=== PATIENT | male | born 1960 ===

== ENCOUNTER 2020-10-25 11:56 | Outpatient (REF) | payer OTHER, SELFPAY ==
[2020-10-25 14:46] LABS: Alanine Aminotransferase 22 U/L (0-40); Aspartate Amino Transferase 23 U/L (5-37); Cholesterol 221 mg/dL; HDL Cholesterol 57 mg/dL; LDL Cholesterol Calculated 139 mg/dl; Triglycerides 127 mg/dL
[2020-10-25 15:08] LABS: PSA,Total (Free>4and<10) 1.35 ng/mL (0.00-4.00)
== END 2020-10-25 11:57 | disposition home or self-care (01) ==
LOC: HO.HMGCLDS 11:56
PROVIDERS: PCP Internal Medicine; Visit Provider Internal Medicine
DX: Z00.01 Encounter for general adult medical examination with abnormal findings (principal); Z12.5 Encounter for screening for malignant neoplasm of prostate; E78.5 Hyperlipidemia, unspecified
CPT/HCPCS: 36415; 80061; 84153; 84450; 84460

== ENCOUNTER 2021-04-10 12:07 | Outpatient (REF) | payer OTHER, SELFPAY ==
[2021-04-10 14:34] LABS: Alanine Aminotransferase 23 U/L (0-40); Anion Gap 13 (12-20); Aspartate Amino Transferase 20 U/L (5-37); Blood Urea Nitrogen 19 mg/dL (9-16); Calcium 9.9 mg/dL (8.4-10.2); Carbon Dioxide 26 mmol/L (22-29); Chloride 106 mmol/L (96-108); Cholesterol 224 mg/dL; Estimated Glomerular Filt Rate > 60; Glucose Fasting 100 mg/dL (60-99); HDL Cholesterol 51 mg/dL; LDL Cholesterol Calculated 142 mg/dl; Potassium 4.8 mmol/L (3.3-5.1); Sodium 140 mmol/L (135-145); Triglycerides 159 mg/dL
[2021-04-10 14:40] LABS: Vitamin D 25-OH Total 39.7 ng/mL (>30)
== END 2021-04-10 12:08 | disposition home or self-care (01) ==
LOC: HO.HMGCLDS 12:07
PROVIDERS: PCP Internal Medicine; Visit Provider Internal Medicine
DX: E78.5 Hyperlipidemia, unspecified (principal); E55.9 Vitamin D deficiency, unspecified; I10 Essential (primary) hypertension
CPT/HCPCS: 36415; 80048; 80061; 82306; 84450; 84460

== ENCOUNTER → 2021-08-30 10:42 | Outpatient (BNVA) | payer OTHER, SELFPAY | PROVIDERS: PCP Internal Medicine; Visit Provider Urology | DX: R35.1 Nocturia (principal); R39.15 Urgency of urination; N32.0 Bladder-neck obstruction | CPT/HCPCS: 51798; 99202 ==

== ENCOUNTER 2021-10-27 11:07 | Outpatient (REF) | payer OTHER, SELFPAY ==
[2021-10-27 13:11] LABS: MANUAL DIFF FLAG NO
[2021-10-27 13:12] LABS: Basophils Percent Auto 0.6 % (0-2); Eosinophils Absolute Auto 0.1 X10*3/uL (0.0-0.4); Eosinophils Percent Auto 0.7 % (0-4); Hematocrit 45.7 % (42.0-52.0); Hemoglobin 14.5 g/dl (14.0-18.0); Imm Gran Abs Auto 0.03 X10*3/uL (0.00-0.03); Imm Gran Pct Auto 0.4 % (0.0-0.4); Lymphocytes Absolute Auto 2.6 X10*3/uL (1.2-4.9); Lymphocytes Percent Auto 38.6 % (20-40); Mean Corpuscular HGB Conc 31.7 g/dl (31.0-36.0); Mean Corpuscular Hemoglobin 27.3 pg (27.0-33.0); Mean Corpuscular Volume 85.9 fL (80.0-98.0); Mean Platelet Volume 10.9 fL (9.4-12.4); Monocytes Absolute Auto 0.6 X10*3/uL (0.1-1.2); Monocytes Percent Auto 9.5 % (2-11); Neutrophils Absolute Auto 3.4 x10*3/uL (2.0-8.3); Neutrophils Percent Auto 50.2 % (45-73); Platelet Count 223 X10*3/uL (160-400); Red Blood Count 5.32 X10*6/uL (4.60-5.80); Red Cell Distribution Width 13.2 % (11.0-16.0); White Blood Count 6.7 X10*3/uL (4.8-10.8)
[2021-10-27 13:35] LABS: Alanine Aminotransferase 26 U/L (0-40); Anion Gap 12 (12-20); Aspartate Amino Transferase 20 U/L (5-37); Blood Urea Nitrogen 20 mg/dL (9-16); Calcium 9.6 mg/dL (8.4-10.2); Carbon Dioxide 28 mmol/L (22-29); Chloride 106 mmol/L (96-108); Cholesterol 221 mg/dL; Estimated Glomerular Filt Rate > 60; Glucose Fasting 104 mg/dL (60-99); HDL Cholesterol 49 mg/dL; LDL Cholesterol Calculated 142 mg/dl; Potassium 4.6 mmol/L (3.3-5.1); Sodium 141 mmol/L (135-145); Triglycerides 150 mg/dL
[2021-10-27 14:15] LABS: Vitamin D 25-OH Total 42.4 ng/mL (>30)
== END 2021-10-27 11:08 | disposition home or self-care (01) ==
LOC: HO.HMGCLDS 11:07
PROVIDERS: PCP Internal Medicine; Visit Provider Internal Medicine
DX: E55.9 Vitamin D deficiency, unspecified (principal); K21.9 Gastro-esophageal reflux disease without esophagitis; E78.5 Hyperlipidemia, unspecified; I10 Essential (primary) hypertension
CPT/HCPCS: 36415; 80048; 80061; 82306; 84450; 84460; 85025

== ENCOUNTER 2022-06-18 10:35 | Outpatient (REF) | payer OTHER, SELFPAY ==
[2022-06-18 11:55] LABS: Estimated Average Glucose 123 mg/dL; Hemoglobin A1C 152.4144 umol/L; Hemoglobin A1c % 5.9 %
[2022-06-18 12:45] LABS: Alanine Aminotransferase 29 U/L (0-40); Aspartate Amino Transferase 17 U/L (5-37); Cholesterol 210 mg/dL; Glucose Fasting 106 mg/dL (60-99); HDL Cholesterol 47 mg/dL; LDL Cholesterol Calculated 143 mg/dl; Triglycerides 102 mg/dL; Vitamin D 25-OH Total 53.8 ng/mL (>30)
== END 2022-06-18 10:36 | disposition home or self-care (01) ==
LOC: HO.HMGCLDS 10:35
PROVIDERS: PCP Internal Medicine; Visit Provider Internal Medicine
DX: E55.9 Vitamin D deficiency, unspecified (principal); E78.5 Hyperlipidemia, unspecified; F41.8 Other specified anxiety disorders; K21.9 Gastro-esophageal reflux disease without esophagitis; R73.01 Impaired fasting glucose
CPT/HCPCS: 36415; 80061; 82306; 82947; 83036; 84450; 84460

== ENCOUNTER 2022-08-20 13:55 | Outpatient (REF) | payer OTHER, SELFPAY ==
--- NOTE | ~2022-08-20 | XR_ITS ---
EXAMINATION: LEFT HAND. CLINICAL INFORMATION: Pain in the left wrist. COMPARISON: None TECHNIQUE: 3 views. FINDINGS: No fracture. No dislocation. Joint spaces are normal. No significant degenerative change. No soft tissue calcification. XR/XR hand wrist LT IMPRESSION: Normal left hand.
== END 2022-08-20 13:56 | disposition home or self-care (01) ==
LOC: HO.HMGCX 13:55
PROVIDERS: PCP Internal Medicine; Visit Provider Internal Medicine
DX: M25.532 Pain in left wrist (principal)
CPT/HCPCS: 73110; 73130

== ENCOUNTER 2023-02-20 12:20 | Outpatient (REF) | payer OTHER, SELFPAY ==
[2023-02-20 17:02] LABS: Alanine Aminotransferase 20 U/L (0-40); Aspartate Amino Transferase 22 U/L (5-37); Cholesterol 213 mg/dL; HDL Cholesterol 54 mg/dL; LDL Cholesterol Calculated 142 mg/dl; Triglycerides 88 mg/dL
[2023-02-20 17:09] LABS: Vitamin D 25-OH Total 60.3 ng/mL (>30)
== END 2023-02-20 12:21 | disposition home or self-care (01) ==
LOC: HO.HMGCLDS 12:20
PROVIDERS: PCP Internal Medicine; Visit Provider Internal Medicine
DX: E78.5 Hyperlipidemia, unspecified (principal); Z86.39 Personal history of other endocrine, nutritional and metabolic disease
CPT/HCPCS: 36415; 80061; 82306; 84450; 84460

== ENCOUNTER 2023-02-25 11:11 | Outpatient (AMB) | payer OTHER, SELFPAY ==
[2023-02-25 12:26] VITALS: BP 100/62; PULSE 74; O2SAT 99; BMI 23.9
--- NOTE | 2023-02-25 12:26 | A.OFFPC_ITS ---
Vital Signs 02/25/23 12:26 Height 5 ft 5 in Weight 143 lb 6 oz BMI 23.9 BP 100/62 Blood Pressure Location Lt brachial Position Sitting Pulse 74 Pulse Source Pulse Oximeter Pulse Oximetry (%) 99 Oxygen Delivery Method Room Air Intake Visit Reasons: 6 month follow up Lipids Intake Note: pt is here to follow up on his labs Allergies No Known Allergies Allergy (Verified 02/25/23 12:41) Medication List - Last Reconciled 02/25/23 by Nirali Salazar MD atorvastatin 20 mg PO DAILY baclofen 10 mg PO DAILY PRN bupropion HCl 150 mg PO QAM cholecalciferol (vitamin D3) 50 mcg PO DAILY diclofenac potassium 50 mg PO BID PRN diclofenac sodium 1% topical flu vacc [id number] 6mos up(PF) mL IM fluoxetine 20 mg PO QAM fluticasone propionate 50 mcg/actuation 1 spray intranasal DAILY magnesium 200 mg PO DAILY meclizine 25 mg PO BID PRN naproxen (EC-Naproxen) 500 mg PO Q12H PRN omeprazole 20 mg PO DAILY prazosin 2 mg PO BEDTIME tamsulosin 0.4 mg PO BEDTIME 30 days Tobacco use date assessed: 02/25/23 Dental Screening Dental Screen Date: 02/25/23 Did you have a dental visit in the last 12 months?: Yes Did you have a dental problem in the last 6 months where you did not have access to dental care?: No Was dental information given to patient?: Patient has dentist HPI 6 month follow up Lipids HPI Details 62-year-old male with history of dyslipidemia currently on atorvastatin 20 mg daily, here today for follow-up. Had recent fasting labs done which showed LDL cholesterol is still elevated, unchanged from previous. Has not really been following any specific diet, as per daughter, patient aids egg regularly for breakfast, and loves eating meat, specially beef, and does not get any regular exercise. [facility] Medical History Anxiety and depression Blurred vision, bilateral Cholelithiasis Chronic GERD Depression with anxiety Dyslipidemia Epigastric pain Hearing loss Left inguinal hernia Left wrist pain Nocturia more than twice per night Osteoarthritis involving multiple joints on both sides of body Vitamin D deficiency Surgical History H/O esophagogastroduodenoscopy History of colonoscopy Family History Father No problems noted. Mother HTN (hypertension) Maternal Grandfather No problems noted. Maternal Grandmother No problems noted. Paternal Grandfather No problems noted. Paternal Grandmother No problems noted. Social History Housing: Apartment Alcohol intake: never Patient Tobacco Use Status: Former Tobacco user Years Smoked: 5 years e-Cigarette/Vaping Use: Never Used Current occupational status: retired Cognitive needs: No Hearing needs: Yes Vision needs: Yes Questionnaire Thrive Questionnaire Date Thrive assessed: 08/20/22 KENDRICK-7 AMB Questionnaire KENDRICK-7 Date KENDRICK - 7 assessed: 08/20/22 Source: Developed by Drs. Eliud Webb, Candida Peoples, Zbigniew Arias and colleagues, with an educational daniel from [employer]. Review of Systems Const Denies fever(s), Denies headache(s) and Denies weakness Eyes Reports no additional complaints ENT Denies dizziness, Denies headache(s), Denies nasal congestion, Denies nasal discharge and Denies sore throat Card Denies chest pain, Denies lightheadedness, Denies palpitations and Denies dyspnea Resp Denies chest congestion, Denies cough, Denies dyspnea and Denies wheezing GI Denies melena, Denies hematochezia and Denies nausea Reports no additional complaints Musc Denies joint swelling and Reports stiffness Neuro Denies dizziness, Denies headache(s) and Denies weakness Psych Reports as per HPI Endo Denies polydipsia, Denies polyuria and Denies palpitations Charles/Lymph Denies easy bruising Aller/Immun Denies seasonal rhinorrhea and Denies wheezing Physical exam (Primary Care) Vital Signs: Last Vital Signs Pulse 74 02/25/23 12:26 BP 100/62 02/25/23 12:26 Pulse Ox 99 02/25/23 12:26 Oxygen Delivery Method Room Air 02/25/23 12:26 BMI result Body Mass Index 23.9 Tobacco/Smoking Status: Tobacco use Status Tobacco use date assessed 02/25/23 02/25/23 12:34 Patient Tobacco Use Status Former Tobacco user 02/25/23 12:34 e-Cigarette/Vaping Use Never Used 02/25/23 12:34 Thrive Assessment: Date of Thrive Assessment Date Thrive assessed 08/20/22 02/25/23 12:34 Const Other: Spoke with 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 via mail 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 General: cooperative, comfortable, no acute distress and alert HENMT Face and sinus: Yes face symmetric Mouth: Normal oral and palatal mucosa present and moist mucous membranes Neck Neck: Yes full ROM, Yes no lymphadenopathy and Yes supple Resp Auscultation: clear to auscultation bilaterally Cardio Other: S1-S2 present regular rate and rhythm GI Inspection: Yes normal to inspection Palpation (GI): Soft to palpation, nontender, no guarding and no masses Skin General skin exam: no rashes or lesions noted Neuro General: gait normal, moves all extremities, Normal light touch and pain sensation, no focal motor deficits and CN's II-XI intact bilaterally Extrem Other: Slightly tender fluctuant swelling noted over left wrist joint, General: Yes full ROM, Yes no joint enlargement, Yes no pedal edema and Yes normal gait Results Reviewed Results Reviewed: RUN: 02/25/23 1241 PAGE 1 [facility] [address] [place] [id number] Manager Housekeeping: Carlos Fong M.D. Specimen Inquiry Name: Claudia Stock Age/Sex: 62/M : 1960 Unit#: [id number] Attend Dr: Nirali Salazar MD Re02/20/23 Status: DEP REF Location: [facility] Disch: SPEC : [id number] MARIBETH: 02/20/23-1232 STATUS: COMP REQ : [id number] RECD: 02/20/23-[address]: Nirali Salazar MD COMP: 02/20/23-1708 ENTERED: 02/20/23-[address]: ORDERED: AST, ALT, Lipid Panel, Vitamin D 25-OH Test Result Flag Reference Site AST (GOT) 22 5-37 U/L ALT (GPT) 20 0-40 U/L Triglyceride 88 mg/dL Desirable Triglyceride: less than 150 mg/dL Borderline High Triglyceride 150-199 mg/dL High Triglyceride: 200-499 mg/dL Very High Triglyceride: greater than or equal to 5OO mg/dL Chol 213 mg/dL Desirable Cholesterol: less than 200 mg/dL Borderline High Cholesterol: 200-239 mg/dL High Cholesterol: greater than 239 mg/dL LDL Calculated 142 mg/dl Desirable LDL: less than 100 mg/dL Near Optimal/Above Optimal LDL: 110-129 mg/dL Borderline High LDL: 130-159 mg/dL High LDL: 160-189 mg/dL Very High LDL: greater than or equal to 190 mg/dL HDL 54 mg/dL Desirable HDL: greater than 40 mg/dL Note: This HDL assay may give artificially low results in patients with liver disease. Vit D 25-OH Tot 60.3 >30 ng/mL Health Based Reference Values* < 20 ng/mL Deficient 20-30 ng/mL Insufficient > 30 ng/mL Sufficient Assessment and Plan Assessment & Plan (1) Dyslipidemia: Code(s): E78.5 - Hyperlipidemia, unspecified Plan: Reviewed recent fasting lipid profile with patient with LDL cholesterol level still elevated, unchanged from previous visits. Continue with atorvastatin, but dose increased to 40 mg daily , in addition to adherence to low-cholesterol diet and regular exercise, at least 30 minutes 3 to 4 times a week. Advised patient to make healthy food choices, eat more fruits, vegetables, whole grains, wild caught fish and low-fat dairy. Limit amount of meat and fried or fatty food products, as well as processed foods and fast foods. Follow-up scheduled with repeat fasting lipid panel in 3 months. Orders: Orders Alanine Aminotransferase 3 Months E78.5 - Hyperlipidemia, unspecified Aspartate Amino Transferase 3 Months E78.5 - Hyperlipidemia, unspecified Lipid Panel 3 Months E78.5 - Hyperlipidemia, unspecified Medications: Changed From atorvastatin 20 mg PO DAILY 90 tabs 3RF E78.5 - Hyperlipidemia, unspecified To atorvastatin 40 mg PO DAILY 90 tabs 3RF E78.5 - Hyperlipidemia, unspecified Coding Level of Care Code Est Pt Level 3 (08035) Diagnoses Dyslipidemia E78.5
== END 2023-02-25 13:48 | disposition home or self-care (01) ==
PROVIDERS: Visit Provider Internal Medicine
DX: E78.5 Hyperlipidemia, unspecified (principal)
CPT/HCPCS: 99213

== ENCOUNTER 2023-05-27 10:41 | Outpatient (REF) | payer OTHER, SELFPAY ==
[2023-05-27 14:23] LABS: Alanine Aminotransferase 21 U/L (0-40); Aspartate Amino Transferase 21 U/L (5-37); Cholesterol 223 mg/dL (<200); HDL Cholesterol 55 mg/dL (>40); LDL Cholesterol Calculated 146 mg/dL (<100); Triglycerides 111 mg/dL (<150)
== END 2023-05-27 10:42 | disposition home or self-care (01) ==
LOC: HO.HMGCLDS 10:41
PROVIDERS: PCP Internal Medicine; Visit Provider Internal Medicine
DX: E78.5 Hyperlipidemia, unspecified (principal)
CPT/HCPCS: 36415; 80061; 84450; 84460

== ENCOUNTER 2023-07-15 11:48 | Outpatient (AMB) | payer OTHER, SELFPAY ==
[2023-07-15 12:38] VITALS: BP 126/72; PULSE 66; O2SAT 98; BMI 23.7
--- NOTE | 2023-07-15 12:38 | MHC.PC.OV ---
Vital Signs 07/15/23 12:38 Height 5 ft 5 in Weight 142 lb 8 oz BMI 23.7 BP 126/72 Blood Pressure Location Lt brachial Position Sitting Pulse 66 Pulse Source Pulse Oximeter Pulse Oximetry (%) 98 Oxygen Delivery Method Room Air Intake Visit Reasons: follow up Intake Note: Pt is here to follow up for lab results Allergies No Known Allergies Allergy (Verified 07/15/23 13:08) Medication List - Last Reconciled 07/15/23 by Nirali Salazar MD cholecalciferol (vitamin D3) 50 mcg PO DAILY fluticasone propionate 50 mcg/actuation 1 spray intranasal DAILY meclizine 25 mg PO BID PRN omeprazole 20 mg PO DAILY Tobacco use date assessed: 07/15/23 Fall risk assessment: No Falls in past year Last assessed Fall Risk: 07/15/23 HPI follow up HPI Details 63-year-old male with chronic GERD, hyperlipidemia, and seasonal allergic rhinitis, here today for follow-up. He has been feeling well, had recent fasting labs done which showed elevated LDL cholesterol. [facility] Medical History Refused influenza vaccine Anxiety and depression Left wrist pain Left inguinal hernia Cholelithiasis Hearing loss Osteoarthritis involving multiple joints on both sides of body Epigastric pain Nocturia more than twice per night Vitamin D deficiency Depression with anxiety Chronic GERD Blurred vision, bilateral Dyslipidemia Surgical History H/O esophagogastroduodenoscopy History of colonoscopy Family History Father No problems noted. Mother HTN (hypertension) Maternal Grandfather No problems noted. Maternal Grandmother No problems noted. Paternal Grandfather No problems noted. Paternal Grandmother No problems noted. Social History Housing: Apartment Alcohol intake: never Patient Tobacco Use Status: Former Tobacco user Years Smoked: 5 years e-Cigarette/Vaping Use: Never Used Current occupational status: retired Cognitive needs: No Hearing needs: Yes Vision needs: Yes Questionnaire Thrive Questionnaire Date Thrive assessed: 08/20/22 KENDRICK-7 AMB Questionnaire KENDRICK-7 Date KENDRICK - 7 assessed: 08/20/22 Source: Developed by Drs. Eliud Webb, Candida Peoples, Zbigniew Arias and colleagues, with an educational daniel from [employer]. Review of Systems Const Denies fever(s), Denies headache(s) and Denies weakness Eyes Reports no additional complaints ENT Denies headache(s), Denies nasal congestion, Denies nasal discharge and Denies sore throat Card Denies chest pain, Denies lightheadedness and Denies dyspnea Resp Denies cough and Denies dyspnea GI Denies melena, Denies hematochezia and Denies nausea Reports no additional complaints Musc Denies joint swelling and Reports stiffness Neuro Denies headache(s) and Denies weakness Psych Reports as per HPI Aller/Immun Reports seasonal rhinorrhea Physical exam (Primary Care) Vital Signs: Last Vital Signs Pulse 66 07/15/23 12:38 BP 126/72 07/15/23 12:38 Pulse Ox 98 07/15/23 12:38 Oxygen Delivery Method Room Air 07/15/23 12:38 BMI result Body Mass Index 23.7 Tobacco/Smoking Status: Tobacco use Status Tobacco use date assessed 07/15/23 07/15/23 12:52 Patient Tobacco Use Status Former Tobacco user 07/15/23 12:38 e-Cigarette/Vaping Use Never Used 07/15/23 12:38 Thrive Assessment: Date of Thrive Assessment Date Thrive assessed 08/20/22 07/15/23 12:38 Const Other: Spoke with 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 via 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 General: cooperative, comfortable, no acute distress and alert HENMT Face and sinus: Yes face symmetric Mouth: Normal oral and palatal mucosa present and moist mucous membranes Neck Neck: Yes full ROM, Yes no lymphadenopathy and Yes supple Resp Auscultation: clear to auscultation bilaterally Cardio Other: S1-S2 present regular rate and rhythm GI Inspection: Yes normal to inspection Palpation (GI): Soft to palpation, nontender, no guarding and no masses Skin General skin exam: no rashes or lesions noted Neuro General: gait normal, moves all extremities, Normal light touch and pain sensation, no focal motor deficits and CN's II-XI intact bilaterally Extrem General: Yes full ROM, Yes no joint enlargement, Yes no pedal edema and Yes normal gait Results Reviewed Results Reviewed: Name: Claudia Stock Age/Sex: 62/M : 1960 Unit#: [id number] Attend Dr: Nirali Salazar MD Re05/27/23 Status: DEP [facility] Disch: SPEC : [id number] MARIBETH: 05/27/23 STATUS: COMP REQ : [id number] RECD: 05/27/[address]: Nirali Salazar MD COMP: 05/27/23 ENTERED: 05/27/[address]: ORDERED: AST, ALT, Lipid Panel Test Result Flag Reference Site AST (GOT) 21 5-37 U/L ALT (GPT) 21 0-40 U/L Triglyceride 111 <150 mg/dL Desirable Triglyceride: less than 150 mg/dL Borderline High Triglyceride 150-199 mg/dL High Triglyceride: 200-499 mg/dL Very High Triglyceride: greater than or equal to 5OO mg/dL Cholesterol 223 H <200 mg/dL Desirable Cholesterol: less than 200 mg/dL Borderline High Cholesterol: 200-239 mg/dL High Cholesterol: greater than 239 mg/dL LDL Calculated 146 H <100 mg/dL Desirable LDL: less than 100 mg/dL Near Optimal/Above Optimal LDL: 110-129 mg/dL Borderline High LDL: 130-159 mg/dL High LDL: 160-189 mg/dL Very High LDL: greater than or equal to 190 mg/dL HDL 55 >40 mg/dL Desirable HDL: greater than 40 mg/dL Note: This HDL assay may give artificially low results in patients with liver disease. Assessment and Plan Assessment & Plan (1) Chronic GERD: Comment: With history of H pylori infection, currently being seen by Dr. Deng Code(s): K21.9 - Gastro-esophageal reflux disease without esophagitis Plan: Followed by GI, currently on omeprazole 20 mg daily (2) Dyslipidemia: Code(s): E78.5 - Hyperlipidemia, unspecified Plan: Reviewed recent fasting lipid profile with patient with high LDL cholesterol . Started on atorvastatin 20 mg daily . Reinforced adherence to low-cholesterol diet and regular exercise, at least 30 minutes 3 to 4 times a week. Advised patient to make healthy food choices, eat more fruits, vegetables, whole grains, wild caught fish and low-fat dairy. Limit amount of meat and fried or fatty food products, as well as processed foods and fast foods. Follow-up scheduled with repeat fasting lipid panel in 4 months. (3) Refused influenza vaccine: Code(s): Z28.21 - Immunization not carried out because of patient refusal (4) COVID-19 vaccination declined: Code(s): Z. - Immunization not carried out because of patient refusal Orders: Orders Aspartate Amino Transferase 4 Months K21.9 - Gastro-esophageal reflux disease without esophagitis, E78.5 - Hyperlipidemia, unspecified Lipid Panel 4 Months K21.9 - Gastro-esophageal reflux disease without esophagitis, E78.5 - Hyperlipidemia, unspecified Alanine Aminotransferase 4 Months K21.9 - Gastro-esophageal reflux disease without esophagitis, E78.5 - Hyperlipidemia, unspecified Vitamin D 25-OH Total 4 Months K21.9 - Gastro-esophageal reflux disease without esophagitis, E78.5 - Hyperlipidemia, unspecified Complete Blood Count Auto Diff 4 Months K21.9 - Gastro-esophageal reflux disease without esophagitis, E78.5 - Hyperlipidemia, unspecified Medications: New atorvastatin 20 mg (1/2 x 40 mg) PO DAILY 30 tabs 0RF Refilled omeprazole 20 mg PO DAILY 30 tabs 5RF meclizine 25 mg PO BID PRN 60 tabs 0RF dizziness fluticasone propionate 50 mcg/actuation administer into each nostril 1 spray intranasal DAILY 16 grams 5RF cholecalciferol (vitamin D3) 50 mcg PO DAILY 90 caps 1RF Coding Level of Care Code Est Pt Level 4 (38028) Diagnoses Chronic GERD K21.9 Dyslipidemia E78.5 Refused influenza vaccine COVID-19 vaccination declined
== END 2023-07-15 14:06 | disposition home or self-care (01) ==
PROVIDERS: PCP Internal Medicine; Visit Provider Internal Medicine
DX: K21.9 Gastro-esophageal reflux disease without esophagitis (principal); E78.5 Hyperlipidemia, unspecified; Z28.21 Immunization not carried out because of patient refusal
CPT/HCPCS: 99214

== ENCOUNTER 2023-09-17 09:02 | Outpatient (AMB) | payer OTHER, SELFPAY ==
[2023-09-17 09:06] VITALS: BP 110/78; PULSE 75; O2SAT 98; BMI 24.1
--- NOTE | 2023-09-17 09:06 | MHC.PC.OV ---
Vital Signs 09/17/23 09:06 Height 5 ft 5 in Weight 145 lb BMI 24.1 BP 110/78 Blood Pressure Location Rt brachial Position Sitting Pulse 75 Pulse Source Pulse Oximeter Pulse Oximetry (%) 98 Oxygen Delivery Method Room Air Intake Visit Reasons: PE Intake Note: Pt is here today for his PE Allergies No Known Allergies Allergy (Verified 09/17/23 09:33) Medication List - Last Reconciled 09/17/23 by Nirali Salazar MD atorvastatin 20 mg (1/2 x 40 mg) PO DAILY cholecalciferol (vitamin D3) 50 mcg PO DAILY fluticasone propionate 50 mcg/actuation 1 spray intranasal DAILY meclizine 25 mg PO BID PRN omeprazole 20 mg PO DAILY Tobacco use date assessed: 09/17/23 Dental Screening Dental Screen Date: 09/17/23 Did you have a dental visit in the last 12 months?: No Was dental information given to patient?: Patient has dentist HPI PE HPI Details 63-year-old male here today for his physical exam. Currently takes atorvastatin for his hyperlipidemia, has been compliant with his diet but no regular exercise. He has mixed conductive NSAIDs in read neural hearing loss, recently fitted for hearing aids. He has been diagnosed to have cholelithiasis and bilateral inguinal hernias, advised to get surgery, but patient hesitant in getting procedures done. Currently goes to [facility] for follow-up on his depression/anxiety. Not on any medications at present time. He sees Dr. Augustin for his polyarthralgia He was seen by Dr. Deng last year and scheduled for a screening colonoscopy and repeat upper endoscopy, results unavailable to me at present time. 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 Mother HTN (hypertension) Maternal Grandfather No problems noted. Maternal Grandmother No problems noted. Paternal Grandfather No problems noted. Paternal Grandmother No problems noted. Social History Housing: Apartment Alcohol intake: never Patient Tobacco Use Status: Former Tobacco user Years Smoked: 5 years e-Cigarette/Vaping Use: Never Used Current occupational status: retired Cognitive needs: No Hearing needs: Yes Vision needs: Yes Questionnaire PHQ-9 Over the last 2 weeks, how often have you been bothered by any of the following problems? 1. Little interest or pleasure in doing things: not at all 2. Feeling down, depressed, or hopeless: several days 3. Trouble falling or staying asleep, or sleeping too much: several days 4. Feeling tired or having little energy: several days 5. Poor appetite or overeating: not at all 6. Feeling bad about yourself - or that you are a failure or have let yourself or your family down: not at all 7. Trouble concentrating on things, such as reading the newspaper or watching television: not at all 8. Moving or speaking so slowly that other people could have noticed. Or the opposite - being so fidgety or restless that you have been moving around a lot more than usual: not at all 9. Thoughts that you would be better off or of hurting yourself in some way: not at all Total score: 3 Depression Screening Interpretation: Positive Depression Screening Follow-up: Existing condition, In treatment and Community Mental Health Worker F/U (Followed at the [facility]) Depression Screening Done: Yes Source: Developed by Drs. Eliud Webb, Candida Peoples, Zbigniew Arias and colleagues, with an educational daniel from [employer]. Thrive Questionnaire Date Thrive assessed: 09/17/23 I am a: Patient What is your living situation today?: I have a steady place to live Within the past 12 months, did the food you bought not last and you didn't have the money to get more?: Sometimes True Within the past 12 months, did you worry whether your food would run out before you got money to buy more?: Sometimes True Do you have trouble paying for medicines?: Yes Do you have trouble getting transportation to medical appointments?: No Do you have trouble paying your heating and electricity bill?: Yes Do you have trouble taking care of your child, family member or friend?: Yes Do you have trouble with day-to-day activities such as bathing, preparing meals, shopping, managing finances, etc.?: No Are you currently unemployed and looking for a job?: Yes Are you interested in more education?: No THRIVE Score: 3 AUDIT C Alcohol Use Questionnaire (AUDIT-C) 1. How often do you have a drink containing alcohol?: Never Total Score: 0 KENDRICK-7 AMB Questionnaire KENDRICK-7 Date KENDRICK - 7 assessed: 09/17/23 Feeling nervous, anxious, or on edge: 1 = Several days Not being able to stop or control worryin = Several days Worrying too much about different things: 2 = More than half the days Trouble relaxin = Several days Being so restless that it is hard to sit still: 0 = Not at all Becoming easily annoyed or irritable: 0 = Not at all Feeling afraid as if something awful might happen: 0 = Not at all Total KENDRICK-7 score (0-4 normal; 5-9 mild; 10-14 moderate; 15-21 severe): 5 Source: Developed by Drs. Eliud Webb, Candida Peoples, Zbigniew Arias and colleagues, with an educational daniel from [employer]. KENDRICK-7 Assessment Billing KENDRICK-7 Assessment Tool: KENDRICK-7 Assessment 15233 Review of Systems Const Denies fever(s), Denies headache(s) and Denies weakness Eyes Reports no additional complaints ENT Denies headache(s), Denies nasal congestion, Denies nasal discharge and Denies sore throat Card Denies chest pain, Denies lightheadedness and Denies dyspnea Resp Denies cough and Denies dyspnea GI Denies melena, Denies hematochezia and Denies nausea Reports no additional complaints Musc Reports arthralgias, Denies joint swelling, Reports limited range of motion (right shoulder) and Reports stiffness Skin/Breast Denies rash Neuro Denies headache(s), Denies seizure-like activity and Denies weakness Psych Reports as per HPI Endo Reports no additional complaints Charles/Lymph Reports no additional complaints Aller/Immun Reports seasonal rhinorrhea Physical exam (Primary Care) Vital Signs: Last Vital Signs Pulse 75 09/17/23 09:06 BP 110/78 09/17/23 09:06 Pulse Ox 98 09/17/23 09:06 Oxygen Delivery Method Room Air 09/17/23 09:06 BMI result Body Mass Index 24.1 Tobacco/Smoking Status: Tobacco use Status Tobacco use date assessed 09/17/23 09/17/23 09:12 Patient Tobacco Use Status Former Tobacco user 09/17/23 09:08 e-Cigarette/Vaping Use Never Used 09/17/23 09:08 PHQ-9: PHQ-9 Score PHQ-9: Total score 3 09/17/23 09:37 Depression Screening Interpretation: Positive Depression Screening Follow-up: Existing condition, In treatment and Community Mental Health Worker F/U (Followed at the [facility]) Thrive Assessment: Date of Thrive Assessment Date Thrive assessed 09/17/23 09/17/23 09:37 Const General: comfortable, no acute distress, alert and Physically active Orientation/consciousness: patient oriented x3 HENMT Head: Yes normocephalic Ears: TM's normal bilaterally, EAC's normal and hearing grossly impaired (wears hearing aid) bilaterally Eyes General: appearance normal, both eyes and all related structures Neck Neck: Yes full ROM, Yes no lymphadenopathy and Yes supple Thyroid: Thyroid normal (Nonpalpable) Resp Auscultation: clear to auscultation bilaterally Cardio Rate: regular rate Rhythm: regular rhythm Heart sounds: S1 normal heart sound present and S2 normal heart sound present GI Palpation (GI): Soft to palpation, Tenderness to palpation present (GI) in the epigastrum and no guarding Other: Bilateral non reducible inguinal hernias present General: Yes no CVA tenderness Back/Spine/Pelvis Back: no CVA tenderness and No back tenderness Skin General skin exam: no rashes or lesions noted Neuro General: patient oriented x3, gait normal, tone normal, moves all extremities, Normal light touch and pain sensation, no focal motor deficits and CN's II-XI intact bilaterally Extrem General: Yes full ROM, Yes no joint enlargement, Yes no clubbing, cyanosis or edema and Yes no calf tenderness Psych Appearance: grossly normal and well kempt Mental Status: mental status grossly normal Speech and movement: Normal speech and movement present Affect: normal affect Attitude: cooperative Assessment and Plan Assessment & Plan (1) Prostate cancer screening: Code(s): Z12.5 - Encounter for screening for malignant neoplasm of prostate Plan: PSA level ordered (2) Tendinitis of left hip: Code(s): M76.892 - Other specified enthesopathies of left lower limb, excluding foot Plan: Currently sees Dr Augustin , uses Diclofenac gel prn (3) Mixed conductive and sensorineural hearing loss, bilateral: Comment: Followed by ENT, Dr. Carlos Garza Code(s): H90.6 - Mixed conductive and sensorineural hearing loss, bilateral Plan: Wears hearing aids (4) Refused influenza vaccine: Code(s): Z28.21 - Immunization not carried out because of patient refusal (5) Anxiety and depression: Code(s): F41.9 - Anxiety disorder, unspecified; F32.A - Depression, unspecified Plan: Followed at the [facility] (6) Inguinal hernia, bilateral: Code(s): K40.20 - Bilateral inguinal hernia, without obstruction or gangrene, not specified as recurrent Plan: Patient has attended getting surgery done, as advised by his surgeon (7) GERD without esophagitis: Comment: Followed by Dr. Javan Deng at [facility] Code(s): K21.9 - Gastro-esophageal reflux disease without esophagitis Plan: Currently on omeprazole, will request copy of results of colonoscopy and upper endoscopy from Dr. Deng (8) Cholelithiasis: Code(s): K80.20 - Calculus of gallbladder without cholecystitis without obstruction Plan: Currently asymptomatic advised to go fat diet, declines getting surgery at present (9) Osteoarthritis involving multiple joints on both sides of body: Code(s): M15.9 - Polyosteoarthritis, unspecified Plan: Followed by (10) Dyslipidemia: Code(s): E78.5 - Hyperlipidemia, unspecified Plan: Fasting lipids are within normal limits, continue with atorvastatin 20 mg daily (11) Blurred vision, bilateral: Comment: goes to [facility] Code(s): H53.8 - Other visual disturbances (12) Annual visit for general adult medical examination with abnormal findings: Code(s): Z00.01 - Encounter for general adult medical examination with abnormal findings Plan: Will check appropriate labs. Recommended dental visit every 6 months and regular eye exams, at least every 2 years, goes to [facility]. Take adequate calcium in diet and vitamin-D 3 at 2000 IU per cap once a day, in addition to weight-bearing exercises to help maintain good muscle tone and weight control. Will obtain copy of last colonoscopy results Dr. Deng. Patient declines getting any vaccines (13) Vaccine refused by patient: Code(s): Z28.20 - Immunization not carried out because of patient decision for unspecified reason Orders: Orders PSA,Total (Free>4and<10) 11/03/23 Z12.5 - Encounter for screening for malignant neoplasm of prostate Medications: Refilled atorvastatin 20 mg (1/2 x 40 mg) PO DAILY 90 tabs 1RF cholecalciferol (vitamin D3) 50 mcg PO DAILY 90 caps 1RF fluticasone propionate 50 mcg/actuation administer into each nostril 1 spray intranasal DAILY 16 grams 5RF Coding Level of Care Code Est Pt Prev Care >65y(92638) Diagnoses Prostate cancer screening Z12.5 Tendinitis of left hip M76.892 Mixed conductive and sensorineural hearing loss, bilateral H90.6 Refused influenza vaccine Z28.21 Anxiety and depression F41.9; F32.A Inguinal hernia, bilateral K40.20 GERD without esophagitis K21.9 Cholelithiasis K80.20 Osteoarthritis involving multiple joints on both sides of body M15.9 Dyslipidemia E78.5 Blurred vision, bilateral H53.8 Annual visit for general adult medical examination with abnormal findings Z00.01 Vaccine refused by patient Z28.20 Additional Codes KENDRICK-7 Assessment Billing - KENDRICK-7 Assessment Tool: KENDRICK-7 Assessment [id number] ([id number])
== END 2023-09-17 11:02 | disposition home or self-care (01) ==
PROVIDERS: PCP Internal Medicine; Visit Provider Internal Medicine
DX: Z00.00 Encounter for general adult medical examination without abnormal findings (principal); Z12.5 Encounter for screening for malignant neoplasm of prostate; M76.892 Other specified enthesopathies of left lower limb, excluding foot; H90.6 Mixed conductive and sensorineural hearing loss, bilateral; Z28.21 Immunization not carried out because of patient refusal; F41.9 Anxiety disorder, unspecified; F32.A Depression, unspecified; K40.20 Bilateral inguinal hernia, without obstruction or gangrene, not specified as recurrent; K21.9 Gastro-esophageal reflux disease without esophagitis; K80.20 Calculus of gallbladder without cholecystitis without obstruction; M15.9 Polyosteoarthritis, unspecified; E78.5 Hyperlipidemia, unspecified
CPT/HCPCS: 99396

== ENCOUNTER 2024-05-31 08:00 | Outpatient (REF) | payer OTHER, SELFPAY ==
[2024-05-31 09:55] LABS: MANUAL DIFF FLAG NO
[2024-05-31 10:06] LABS: Basophils Percent Auto 0.6 % (0-2); Eosinophils Absolute Auto 0.1 X10*3/uL (0.0-0.4); Hematocrit 46.1 % (42.0-52.0); Hemoglobin 14.7 g/dl (14.0-18.0); Imm Gran Abs Auto 0.02 X10*3/uL (0.00-0.03); Imm Gran Pct Auto 0.3 % (0.0-0.4); Lymphocytes Absolute Auto 2.5 X10*3/uL (1.2-4.9); Lymphocytes Percent Auto 36.1 % (20-40); Mean Corpuscular HGB Conc 31.9 g/dl (31.0-36.0); Mean Corpuscular Hemoglobin 27.1 pg (27.0-33.0); Mean Corpuscular Volume 84.9 fL (80.0-98.0); Mean Platelet Volume 10.9 fL (9.4-12.4); Monocytes Absolute Auto 0.7 X10*3/uL (0.1-1.2); Monocytes Percent Auto 9.8 % (2-11); Neutrophils Absolute Auto 3.6 x10*3/uL (2.0-8.3); Neutrophils Percent Auto 52.2 % (45-73); Platelet Count 197 X10*3/uL (160-400); Red Blood Count 5.43 X10*6/uL (4.60-5.80); Red Cell Distribution Width 13.2 % (11.0-16.0); White Blood Count 6.8 X10*3/uL (4.8-10.8)
[2024-05-31 10:30] LABS: Alanine Aminotransferase 23 U/L (0-40); Aspartate Amino Transferase 35 U/L (5-37); Cholesterol 187 mg/dL (<200); HDL Cholesterol 50 mg/dL (>40); LDL Cholesterol Calculated 112 mg/dL (<100); Triglycerides 125 mg/dL (<150)
[2024-05-31 10:39] LABS: PSA,Total (Free>4and<10) 1.54 ng/mL (0.00-4.00)
[2024-05-31 10:45] LABS: Vitamin D 25-OH Total 43.8 ng/mL (>30)
== END 2024-05-31 08:01 | disposition home or self-care (01) ==
LOC: HO.HMGCLDS 08:00
PROVIDERS: PCP Internal Medicine; Visit Provider Internal Medicine
DX: K21.9 Gastro-esophageal reflux disease without esophagitis (principal); E78.5 Hyperlipidemia, unspecified; Z12.5 Encounter for screening for malignant neoplasm of prostate
CPT/HCPCS: 36415; 80061; 82306; 84153; 84450; 84460; 85025

== ENCOUNTER 2024-06-02 10:56 | Outpatient (AMB) | payer OTHER, SELFPAY ==
[2024-06-02 12:21] VITALS: BP 102/60; PULSE 71; O2SAT 98; BMI 24.8
--- NOTE | 2024-06-02 12:21 | A.OFFPC_ITS ---
Vital Signs 06/02/24 12:21 Height 5 ft 5 in Weight 149 lb BMI 24.8 BP 102/60 Blood Pressure Location Lt brachial Position Sitting Pulse 71 Pulse Source Pulse Oximeter Pulse Oximetry (%) 98 Oxygen Delivery Method Room Air Intake Visit Reasons: f/u labs Intake Note: Pt is here today to f/u lab results Allergies No Known Allergies Allergy (Verified 06/02/24 12:33) Medication List - Last Reconciled 06/02/24 by Nirali Salazar MD atorvastatin 20 mg (1/2 x 40 mg) PO DAILY baclofen 10 mg PO DAILY bupropion HCl XL 150 mg PO QAM cholecalciferol (vitamin D3) 50 mcg PO DAILY diclofenac potassium 50 mg PO BID diclofenac sodium 1% topical fluticasone propionate 50 mcg/actuation 1 spray intranasal DAILY magnesium 200 mg PO DAILY meclizine 25 mg PO BID PRN omeprazole 20 mg PO DAILY prazosin 1 mg PO BEDTIME Tobacco use date assessed: 06/02/24 Dental Screening Dental Screen Date: 09/17/23 HPI f/u labs HPI Details 63-year-old male with dyslipidemia, here today for his follow-up. He is currently taking atorvastatin 20 mg once a day, and has been trying to follow recommended diet. Recent fasting labs done showed normal fasting lipid, patient tolerating medication well with no side effects reported Has GERD, needs refill on his omeprazole and gets occasional lightheadedness usually with sudden changes in position, would like a refill on his meclizine. [facility] Medical History Vaccine refused by patient Inguinal hernia, bilateral Prostate cancer screening Tendinitis of left hip Mixed conductive and sensorineural hearing loss, bilateral Refused influenza vaccine Cholelithiasis Osteoarthritis involving multiple joints on both sides of body Nocturia more than twice per night Vitamin D deficiency Depression with anxiety Blurred vision, bilateral Dyslipidemia Surgical History H/O esophagogastroduodenoscopy History of colonoscopy Family History Father No problems noted. Mother HTN (hypertension) Maternal Grandfather No problems noted. Maternal Grandmother No problems noted. Paternal Grandfather No problems noted. Paternal Grandmother No problems noted. Social History Housing: Apartment Alcohol intake: never Patient Tobacco Use Status: Former Tobacco user Years Smoked: 5 years e-Cigarette/Vaping Use: Never Used Current occupational status: retired Cognitive needs: No Hearing needs: Yes Vision needs: Yes Questionnaire Thrive Questionnaire Date Thrive assessed: 09/17/23 I am a: Parent/Caregiver What is your living situation today?: I choose not to answer this question Within the past 12 months, did the food you bought not last and you didn't have the money to get more?: I choose not to answer this question Within the past 12 months, did you worry whether your food would run out before you got money to buy more?: I choose not to answer this question Do you have trouble paying for medicines?: I choose not to answer this question Do you have trouble getting transportation to medical appointments?: I choose not to answer this question Do you have trouble paying your heating and electricity bill?: I choose not to answer this question Do you have trouble taking care of your child, family member or friend?: I choose not to answer this question Do you have trouble with day-to-day activities such as bathing, preparing meals, shopping, managing finances, etc.?: I choose not to answer this question Are you currently unemployed and looking for a job?: I choose not to answer this question Are you interested in more education?: I choose not to answer this question Please select the resources that you would like help with: None Currently or been in a relationship where the following occur: I choose not to answer THRIVE Score: 0 AUDIT C Alcohol Use Questionnaire (AUDIT-C) 1. How often do you have a drink containing alcohol?: Never Total Score: 0 KENDRICK-7 AMB Questionnaire KENDRICK-7 Date KENDRICK - 7 assessed: 09/17/23 Feeling nervous, anxious, or on edge: 1 = Several days Not being able to stop or control worryin = Several days Worrying too much about different things: 1 = Several days Trouble relaxin = Several days Being so restless that it is hard to sit still: 0 = Not at all Becoming easily annoyed or irritable: 0 = Not at all Feeling afraid as if something awful might happen: 1 = Several days Total KENDRICK-7 score (0-4 normal; 5-9 mild; 10-14 moderate; 15-21 severe): 5 Source: Developed by Drs. Eliud Webb, Candida Peoples, Zbigniew Arias and colleagues, with an educational daniel from [employer]. Review of Systems Const Denies fever(s), Denies headache(s) and Denies weakness ENT Denies headache(s), Denies nasal congestion, Denies nasal discharge and Denies sore throat Card Denies chest pain, Denies lightheadedness and Denies dyspnea Resp Denies cough and Denies dyspnea GI Denies melena, Denies hematochezia and Denies nausea Musc Reports arthralgias, Denies joint swelling and Reports stiffness Neuro Denies headache(s), Denies seizure-like activity and Denies weakness Endo Reports no additional complaints Physical exam (Primary Care) Vital Signs: Last Vital Signs Pulse 71 06/02/24 12:21 BP 102/60 06/02/24 12:21 Pulse Ox 98 06/02/24 12:21 Oxygen Delivery Method Room Air 06/02/24 12:21 BMI result Body Mass Index 24.8 Tobacco/Smoking Status: Tobacco use Status Tobacco use date assessed 06/02/24 06/02/24 12:30 Patient Tobacco Use Status Former Tobacco user 06/02/24 12:30 e-Cigarette/Vaping Use Never Used 06/02/24 12:30 Thrive Assessment: Date of Thrive Assessment Date Thrive assessed 09/17/23 06/02/24 12:30 Currently or been in a relationship where the following occur: I choose not to answer Const General: comfortable, no acute distress, alert and Physically active Orientation/consciousness: patient oriented x3 HENMT Head: Yes normocephalic Ears: TM's normal bilaterally, EAC's normal and hearing grossly impaired (wears hearing aid) bilaterally Eyes General: appearance normal, both eyes and all related structures Neck Neck: Yes full ROM, Yes no lymphadenopathy and Yes supple Thyroid: Thyroid normal (Nonpalpable) Resp Auscultation: clear to auscultation bilaterally Cardio Rate: regular rate Rhythm: regular rhythm Heart sounds: S1 normal heart sound present and S2 normal heart sound present GI Palpation (GI): Soft to palpation, nontender, no guarding and no masses Auscultation: normal bowel sounds Skin General skin exam: no rashes or lesions noted Neuro General: patient oriented x3, gait normal, tone normal, moves all extremities, Normal light touch and pain sensation, no focal motor deficits and CN's II-XI intact bilaterally Extrem General: Yes full ROM, Yes no joint enlargement, Yes no clubbing, cyanosis or edema and Yes no calf tenderness Results Reviewed Results Reviewed: Name: Claudia Stock Age/Sex: 63/M : 1960 Unit#: [id number] Attend Dr: Nirali Salazar MD Re05/31/24 Status: DEP REF Location: [facility] Disch: SPEC : [id number] MARIBETH: 05/31/24 STATUS: COMP REQ : [id number] RECD: 05/31/[address]: Nirali Salazar MD COMP: 05/31/24 ENTERED: 05/31/[address] [facility] DR: ORDERED: CBC Auto Diff Test Result Flag Reference WBC 6.8 4.8-10.8 X10*3/uL RBC 5.43 4.60-5.80 X10*6/uL HGB 14.7 14.0-18.0 g/dl HCT 46.1 42.0-52.0 % MCV 84.9 80.0-98.0 fL MCH 27.1 27.0-33.0 pg MCHC 31.9 31.0-36.0 g/dl RDW 13.2 11.0-16.0 % PLT 197 160-400 X10*3/uL MPV 10.9 9.4-12.4 fL Neut Pct Auto 52.2 45-73 % ImGran Pct Auto 0.3 0.0-0.4 % Lymp Pct Auto 36.1 20-40 % Jessamine Pct Auto 9.8 2-11 % Eos Pct Auto 1.0 0-4 % Baso Pct Auto 0.6 0-2 % NRBC Pct Auto 0.0 0.0-0.2 /100WBC ANC Neut Abs # 3.6 2.0-8.3 x10*3/uL ImGran Abs Auto 0.02 0.00-0.03 X10*3/uL Lymph Abs Auto 2.5 1.2-4.9 X10*3/uL Jessamine Abs Auto 0.7 0.1-1.2 X10*3/uL Eos Abs Auto 0.1 0.0-0.4 X10*3/uL Baso Abs Auto 0.0 0.0-0.2 X10*3/uL NRBC Abs Auto 0.000 0.0-0.012 X10*3/uL Name: Claudia Stock Age/Sex: 63/M : 1960 Unit#: [id number] Attend Dr: Nirali Salazar MD Re05/31/24 Status: [facility]P [facility] Disch: SPEC : [id number] MARIBETH: 05/31/24 STATUS: COMP REQ : [id number] RECD: 05/31/[address] [facility] DR: Nirali Salazar MD COMP: 05/31/24 ENTERED: 05/31/[address]: ORDERED: AST, ALT, Lipid Panel, Vitamin D 25-OH Test Result Flag Reference AST (GOT) 35 5-37 U/L ALT (GPT) 23 0-40 U/L Triglyceride 125 <150 mg/dL Desirable Triglyceride: less than 150 mg/dL Borderline High Triglyceride 150-199 mg/dL High Triglyceride: 200-499 mg/dL Very High Triglyceride: greater than or equal to 5OO mg/dL Cholesterol 187 <200 mg/dL Desirable Cholesterol: less than 200 mg/dL Borderline High Cholesterol: 200-239 mg/dL High Cholesterol: greater than 239 mg/dL LDL Calculated 112 H <100 mg/dL Desirable LDL: less than 100 mg/dL Near Optimal/Above Optimal LDL: 110-129 mg/dL Borderline High LDL: 130-159 mg/dL High LDL: 160-189 mg/dL Very High LDL: greater than or equal to 190 mg/dL HDL 50 >40 mg/dL Desirable HDL: greater than 40 mg/dL Note: This HDL assay may give artificially low results in patients with liver disease. Vit D 25-OH Tot 43.8 >30 ng/mL Health Based Reference Values* < 20 ng/mL Deficient 20-30 ng/mL Insufficient > 30 ng/mL Sufficient Coding Level of Care Code Est Pt Level 4 (50652) Complex EM visit Add On G2211 Diagnoses Dyslipidemia E78.5 GERD without esophagitis K21.9 Assessment & Plan Assessment & Plan (1) Dyslipidemia: Code(s): E78.5 - Hyperlipidemia, unspecified Category: Medical Plan: Reviewed recent fasting lipid profile with patient with levels within normal limit . Continue atorvastatin 20 mg daily, in addition to adherence to low- cholesterol diet and regular exercise, at least 30 minutes 3 to 4 times a week. Advised patient to make healthy food choices, eat more fruits, vegetables, whole grains, wild caught fish and low-fat dairy. Limit amount of meat and fried or fatty food products, as well as processed foods and fast foods. Follow-up scheduled with repeat fasting lipid panel in 6 months. (2) GERD without esophagitis: Comment: Followed by Dr. Javan Deng at [facility] Code(s): K21.9 - Gastro-esophageal reflux disease without esophagitis Category: Medical Plan: Refill prescription sent for omeprazole Orders: Orders Lipid Panel 09/04/24 E78.5 - Hyperlipidemia, unspecified, K21.9 - Gastro- esophageal reflux disease without esophagitis, M15.9 - Polyosteoarthritis, unspecified, Z12.5 - Encounter for screening for malignant neoplasm of prostate, Z13.1 - Encounter for screening for diabetes mellitus Complete Blood Count Auto Diff 09/04/24 E78.5 - Hyperlipidemia, unspecified, K21.9 - Gastro-esophageal reflux disease without esophagitis, M15.9 - Polyosteoarthritis, unspecified, Z12.5 - Encounter for screening for malignant neoplasm of prostate, Z13.1 - Encounter for screening for diabetes mellitus Aspartate Amino Transferase 09/04/24 E78.5 - Hyperlipidemia, unspecified, K21.9 - Gastro-esophageal reflux disease without esophagitis, M15.9 - Polyosteoarthritis, unspecified, Z12.5 - Encounter for screening for malignant neoplasm of prostate, Z13.1 - Encounter for screening for diabetes mellitus Alanine Aminotransferase 09/04/24 E78.5 - Hyperlipidemia, unspecified, K21.9 - Gastro-esophageal reflux disease without esophagitis, M15.9 - Polyosteoarthritis, unspecified, Z12.5 - Encounter for screening for malignant neoplasm of prostate, Z13.1 - Encounter for screening for diabetes mellitus Basic Metabolic Panel Fasting 09/04/24 E78.5 - Hyperlipidemia, unspecified, K21.9 - Gastro-esophageal reflux disease without esophagitis, M15.9 - Polyosteoarthritis, unspecified, Z12.5 - Encounter for screening for malignant neoplasm of prostate, Z13.1 - Encounter for screening for diabetes mellitus PSA,Total (Free>4and<10) 09/04/24 E78.5 - Hyperlipidemia, unspecified, K21.9 - Gastro-esophageal reflux disease without esophagitis, M15.9 - Polyosteoarthritis, unspecified, Z12.5 - Encounter for screening for malignant neoplasm of prostate, Z13.1 - Encounter for screening for diabetes mellitus Medications: Changed From atorvastatin 20 mg (1/2 x 40 mg) PO DAILY 90 tabs 1RF To atorvastatin 20 mg PO DAILY 90 tabs 3RF Refilled cholecalciferol (vitamin D3) 50 mcg PO DAILY 90 caps 3RF fluticasone propionate 50 mcg/actuation administer into each nostril 1 spray intranasal DAILY 16 grams 5RF meclizine 25 mg PO BID PRN 60 tabs 0RF dizziness omeprazole 20 mg PO DAILY 90 caps 1RF
== END 2024-06-02 13:37 | disposition home or self-care (01) ==
LOC: HO.HMCC 10:57
PROVIDERS: PCP Internal Medicine; Visit Provider Internal Medicine
DX: E78.5 Hyperlipidemia, unspecified (principal); K21.9 Gastro-esophageal reflux disease without esophagitis

== ENCOUNTER → 2024-06-02 10:56 | Outpatient (BNVA) | payer OTHER, SELFPAY | PROVIDERS: PCP Internal Medicine; Visit Provider Internal Medicine | DX: E78.5 Hyperlipidemia, unspecified (principal); K21.9 Gastro-esophageal reflux disease without esophagitis | CPT/HCPCS: 99212 ==

== ENCOUNTER 2024-09-23 08:13 | Outpatient (REF) | payer MEDICARE, SELFPAY ==
--- OUTSIDE RECORDS SUMMARY | 2024-09-23 08:16 | XMS_ITS | Clinical Summary ---
Author Organization [address] [facility] Address [address] [place] [address] Phone Care Team Providers Care Regional Driver Name Role Phone Suzy Jewell MD Primary Care Provider Social History Tobacco Use Types Packs/Day Years Used Date Smoking Tobacco: Never Assessed Sex and Gender Information Value Date Recorded Sex Assigned at Not on file Legal Sex Male 9:35 AM EST Gender Identity Not on file Sexual Orientation Not on file Plan of Treatment Upcoming Encounters Date Type Department Care Team (Late st Contact Info) Description 09/23/2024 11:00 AM EST Evaluation [facility] [address] [id number] Alex Victor, PT [address] [place], [place] [id number] Health Maintenance Due Date Last Done Comments COVID-19 Vaccine (#1) 1965 DTaP,Tdap,and Td Vaccines (1 - Tdap) 1978 Pneumococcal Vaccine: 50+ Ye ars (1 of 2 - PCV) 1978 Pneumococcal Vaccine: Pediat rics (0 to 5 Years) and At-Risk Patients (6 to 64 Years) (1 of 2 - PCV) 1978 Zoster Vaccines (1 of 2) 1978 Abdominal Aortic Aneurysm (A AA) Screen 07/01/2022 Cholesterol Screening (Lipid Panel) 07/01/2022 Colorectal Cancer Screening: Colonoscopy 07/01/2022 Depression Screening 07/01/2022 Hepatitis C Screening 07/01/2022 Medicare Annual Wellness Visit 07/01/2022 Social Influencers of Health Screening 07/01/2022 Influenza Vaccine (#1) 2024 Falls Risk Assessment 2024 RSV Immunization Patients 60 + Years Old (1 - 1-dose 75+ series) 2034 HIB Vaccines Aged Out No longer eligi ble based on patient's age to complete this topic HPV Vaccines Aged Out No longer eligi ble based on patient's age to complete this topic Hepatitis A Vaccines Aged Out No long er eligible based on patient's age to complete this topic Hepatitis B Vaccines Aged Out No long er eligible based on patient's age to complete this topic IPV Vaccines Aged Out No longer eligi ble based on patient's age to complete this topic MMR Vaccines Aged Out No longer eligi ble based on patient's age to complete this topic Meningococcal ACWY Vaccine Aged Out N o longer eligible based on patient's age to complete this topic Meningococcal B Vacine Aged Out No lo nger eligible based on patient's age to complete this topic RSV Immunization Patients Un marcial 20 months Aged Out No longer eligible b ased on patient's age to complete this topic Varicella Vaccines Aged Out No longer eligible based on patient's age to complete this topic Insurance MEDICAID - [place] MEDICARE Care Teams Regional Driver Relationship Specialty Start Date End Date Suzy Jewell MD [address] [place] [phone] PCP - General Internal Medicine 09/08/24
[2024-09-23 10:05] LABS: MANUAL DIFF FLAG NO
[2024-09-23 10:16] LABS: Basophils Percent Auto 0.6 % (0-2); Eosinophils Percent Auto 0.6 % (0-4); Hematocrit 45.4 % (42.0-52.0); Hemoglobin 14.5 g/dl (14.0-18.0); Imm Gran Abs Auto 0.02 X10*3/uL (0.00-0.03); Imm Gran Pct Auto 0.3 % (0.0-0.4); Lymphocytes Absolute Auto 2.4 X10*3/uL (1.2-4.9); Lymphocytes Percent Auto 37.3 % (20-40); Mean Corpuscular HGB Conc 31.9 g/dl (31.0-36.0); Mean Corpuscular Volume 84.4 fL (80.0-98.0); Monocytes Absolute Auto 0.6 X10*3/uL (0.1-1.2); Monocytes Percent Auto 8.4 % (2-11); Neutrophils Absolute Auto 3.5 x10*3/uL (2.0-8.3); Neutrophils Percent Auto 52.8 % (45-73); Platelet Count 218 X10*3/uL (160-400); Red Blood Count 5.38 X10*6/uL (4.60-5.80); Red Cell Distribution Width 13.2 % (11.0-16.0); White Blood Count 6.5 X10*3/uL (4.8-10.8)
[2024-09-23 10:21] LABS: Alanine Aminotransferase 26 U/L (0-40); Anion Gap 11 (12-20); Aspartate Amino Transferase 27 U/L (5-37); Blood Urea Nitrogen 25 mg/dL (9-16); Calcium 9.4 mg/dL (8.4-10.2); Carbon Dioxide 27 mmol/L (22-29); Chloride 108 mmol/L (96-108); Cholesterol 185 mg/dL (<200); Estimated Glomerular Filt Rate > 60; Glucose Fasting 115 mg/dL (60-99); HDL Cholesterol 47 mg/dL (>40); LDL Cholesterol Calculated 117 mg/dL (<100); Potassium 4.5 mmol/L (3.3-5.1); Sodium 141 mmol/L (135-145); Triglycerides 107 mg/dL (<150)
[2024-09-23 10:43] LABS: PSA,Total (Free>4and<10) 1.49 ng/mL (0.00-4.00)
[2024-09-23 13:01] LABS: Vitamin D 25-OH Total 55.6 ng/mL (>30)
[2024-09-23 13:15] LABS: Folate 11.6 ng/mL (> or = 4.0); Vitamin B12 377 pg/mL (200-900)
== END 2024-09-23 08:14 | disposition home or self-care (01) ==
LOC: HO.HMGCLDS 08:13
PROVIDERS: PCP Internal Medicine; Visit Provider Internal Medicine
DX: Z00.01 Encounter for general adult medical examination with abnormal findings (principal); K40.20 Bilateral inguinal hernia, without obstruction or gangrene, not specified as recurrent; H90.6 Mixed conductive and sensorineural hearing loss, bilateral; K80.20 Calculus of gallbladder without cholecystitis without obstruction; K21.9 Gastro-esophageal reflux disease without esophagitis; M15.9 Polyosteoarthritis, unspecified; F41.8 Other specified anxiety disorders; E78.5 Hyperlipidemia, unspecified; E55.9 Vitamin D deficiency, unspecified; R25.2 Cramp and spasm; E53.8 Deficiency of other specified B group vitamins; Z79.899 Other long term (current) drug therapy; Z71.89 Other specified counseling; Z28.20 Immunization not carried out because of patient decision for unspecified reason; Z12.5 Encounter for screening for malignant neoplasm of prostate
CPT/HCPCS: 36415; 80048; 80061; 82306; 82607; 82746; 83735; 84153; 84450; 84460; 85025; 96127; 99397; 99497

== ENCOUNTER 2024-09-23 11:41 | Outpatient (AMB) | payer MEDICARE, MEDICAID, SELFPAY ==
[2024-09-23 11:42] VITALS: BP 122/60; PULSE 81; RESP 16; TEMP 36.6; O2SAT 98; BMI 25.3
--- NOTE | 2024-09-23 11:42 | A.OFFPC_ITS ---
Vital Signs 09/23/24 11:42 Height 5 ft 5 in Weight 152 lb BMI 25.3 BP 122/60 Blood Pressure Location Lt brachial Position Sitting Respiration 16 Pulse 81 Pulse Source Pulse Oximeter Temp 97.8 F Temp Source Oral Pulse Oximetry (%) 98 Intake Visit Reasons: Annual PE Intake Note: Pt is here today for his PE: Last colonoscopy 04/22/23 Garland Maker Required: Yes Garland Maker Language: Estonian [place] Head: Present Accompanied by: Daughter Allergies No Known Allergies Allergy (Verified 09/23/24 11:55) Medication List - Last Reconciled 09/23/24 by Nirali Salazar MD atorvastatin 20 mg PO DAILY baclofen 10 mg PO DAILY bupropion HCl XL 150 mg PO QAM cholecalciferol (vitamin D3) 50 mcg PO DAILY diclofenac potassium 50 mg PO BID diclofenac sodium 1% topical fluticasone propionate 50 mcg/actuation 1 spray intranasal DAILY magnesium 200 mg PO DAILY meclizine 25 mg PO BID PRN omeprazole 20 mg PO DAILY prazosin 1 mg PO BEDTIME Tobacco use date assessed: 09/23/24 Fall risk assessment: No Falls in past year Last assessed Fall Risk: 09/23/24 Dental Screening Dental Screen Date: 09/23/24 Did you have a dental visit in the last 12 months?: No Did you have a dental problem in the last 6 months where you did not have access to dental care?: No Was dental information given to patient?: No HPI Annual PE HPI Details 64-year-old male with history of hyperli pidemia, mixed conductive hearing loss, inguinal hernia bilateral and symptomatic cholelithiasis as well as depression anxiety, here today for his physical exam. He is to be scheduled for a laparoscopic cholecystectomy for symptomatic gallstone at [facility]. As per patient, he will get his inguinal hernia repaired after he gets his cholecystectomy Continues to see a therapist/ psychiatrist at [facility] for his depression and anxiety, currently on bupropion HCL 150 mg in the morning Has an appointment in October 20/[address] Carlos Garza for hearing aid follow-up, patient states that hearing aid is hurting his left ear. Sees Dr. Augustin for his arthritis and back pain and arm pain , currently referred by him to physical therapy , currently using Salonpas patch at bedtime which has been helping. Patient has refused to get any vaccination visit conducted through Estonian site interpreter PFSH Medical History (Updated 09/26/24 @ 16:20 by Nirali Salazar MD) Impaired fasting glucose Vaccine refused by patient Inguinal hernia, bilateral Prostate cancer screening Tendinitis of left hip Mixed conductive and sensorineural hearing loss, bilateral Refused influenza vaccine Cholelithiasis Osteoarthritis involving multiple joints on both sides of body Nocturia more than twice per night Depression with anxiety Blurred vision, bilateral Dyslipidemia Surgical History H/O esophagogastroduodenoscopy History of colonoscopy Family History Father No problems noted. Mother HTN (hypertension) Maternal Grandfather No problems noted. Maternal Grandmother No problems noted. Paternal Grandfather No problems noted. Paternal Grandmother No problems noted. Social History Housing: Apartment Alcohol intake: never Patient Tobacco Use Status: Former Tobacco user Years Smoked: 5 years e-Cigarette/Vaping Use: Never Used Current occupational status: retired Cognitive needs: No Hearing needs: Yes Vision needs: Yes Questionnaire PHQ-9 Over the last 2 weeks, how often have you been bothered by any of the following problems? 1. Little interest or pleasure in doing things: not at all 2. Feeling down, depressed, or hopeless: not at all 3. Trouble falling or staying asleep, or sleeping too much: not at all 4. Feeling tired or having little energy: not at all 5. Poor appetite or overeating: not at all 6. Feeling bad about yourself - or that you are a failure or have let yourself or your family down: not at all 7. Trouble concentrating on things, such as reading the newspaper or watching television: not at all 8. Moving or speaking so slowly that other people could have noticed. Or the opposite - being so fidgety or restless that you have been moving around a lot more than usual: not at all 9. Thoughts that you would be better off or of hurting yourself in some way: not at all Total score: 0 Depression Screening Interpretation: Positive (Currently sees psychiatrist and therapist at [facility], symptoms controlled on medication) Depression Screening Follow-up: Existing condition, In treatment and Community Mental Health Worker F/U Depression Screening Done: Yes 30247 - PHQ-9 Billing: Yes Source: Developed by Drs. Eliud Webb, Candida Peoples, Zbigniew Arias and colleagues, with an educational daniel from [employer] Thrive Questionnaire Date Thrive assessed: 09/23/24 I am a: Patient What is your living situation today?: I have a steady place to live Within the past 12 months, did the food you bought not last and you didn't have the money to get more?: Never true Within the past 12 months, did you worry whether your food would run out before you got money to buy more?: Never true Do you have trouble paying for medicines?: No Do you have trouble getting transportation to medical appointments?: No Do you have trouble paying your heating and electricity bill?: No Do you have trouble taking care of your child, family member or friend?: No Do you have trouble with day-to-day activities such as bathing, preparing meals, shopping, managing finances, etc.?: No Are you currently unemployed and looking for a job?: No Are you interested in more education?: No Currently or been in a relationship where the following occur: I choose not to answer THRIVE Score: 0 AUDIT C Alcohol Use Questionnaire (AUDIT-C) 1. How often do you have a drink containing alcohol?: Never Total Score: 0 KENDRICK-7 AMB Questionnaire KENDRICK-7 Date KENDRICK - 7 assessed: 09/23/24 Feeling nervous, anxious, or on edge: 0 = Not at all Not being able to stop or control worryin = Not at all Worrying too much about different things: 0 = Not at all Trouble relaxin = Not at all Being so restless that it is hard to sit still: 0 = Not at all Becoming easily annoyed or irritable: 0 = Not at all Feeling afraid as if something awful might happen: 0 = Not at all Total KENDRICK-7 score (0-4 normal; 5-9 mild; 10-14 moderate; 15-21 severe): 0 Source: Developed by Drs. Eliud Webb, Zbigniew Corey and colleagues, with an educational daniel from [employer] KENDRICK-7 Assessment Billing KENDRICK-7 Assessment Tool: KENDRICK-7 Assessment 69724 Review of Systems Const Denies fever(s), Denies headache(s) and Denies weakness Eyes Reports no additional complaints ENT Denies headache(s), Denies nasal congestion, Denies nasal discharge and Denies sore throat Card Denies chest pain, Denies lightheadedness and Denies dyspnea Resp Denies cough and Denies dyspnea GI Reports abdominal pain (Intermittent epigastric and right upper quadrant pain), Denies melena, Denies hematochezia and Denies nausea Reports no additional complaints Musc Reports arthralgias, Denies joint swelling and Reports stiffness Skin/Breast Denies rash Neuro Denies headache(s), Denies seizure-like activity and Denies weakness Psych Reports no additional complaints Endo Reports no additional complaints Charles/Lymph Reports no additional complaints Aller/Immun Reports no additional complaints Physical exam (Primary Care) Vital Signs: Last Vital Signs Temp 97.8 F 09/23/24 11:42 Pulse 81 09/23/24 11:42 Resp 16 09/23/24 11:42 BP 122/60 09/23/24 11:42 Pulse Ox 98 09/23/24 11:42 BMI result Body Mass Index 25.3 Tobacco/Smoking Status: Tobacco use Status Tobacco use date assessed 09/23/24 09/23/24 11:45 Patient Tobacco Use Status Former Tobacco user 09/23/24 11:45 e-Cigarette/Vaping Use Never Used 09/23/24 11:45 PHQ-9: PHQ-9 Score PHQ-9: Total score 0 09/23/24 11:57 Depression Screening Interpretation: Positive (Currently sees psychiatrist and therapist at [facility], symptoms controlled on medication) Depression Screening Follow-up: Existing condition, In treatment and Community Mental Health Worker F/U Thrive Assessment: Date of Thrive Assessment Date Thrive assessed 09/23/24 09/23/24 11:47 Currently or been in a relationship where the following occur: I choose not to answer Advance Care Planning discussion: Completed/Scanned Date of discussion: 09/23/24 Who was present: Patient and daughter Forms completed: Health Care Proxy and MOLST Time spent: 16-45 minutes Actual minutes spent: 16 Const General: comfortable, no acute distress and alert Orientation/consciousness: patient oriented x3 HENMT Head: Yes normocephalic Ears: TM's normal bilaterally, EAC's normal and hearing grossly impaired (wears hearing aid) on the right Eyes General: appearance normal, both eyes and all related structures Neck Neck: Yes full ROM, Yes no lymphadenopathy and Yes supple Thyroid: Thyroid normal (Nonpalpable) Resp Auscultation: clear to auscultation bilaterally Cardio Rate: regular rate Rhythm: regular rhythm Heart sounds: S1 normal heart sound present and S2 normal heart sound present GI Palpation (GI): Soft to palpation, Tenderness to palpation present (GI) in the RUQ, no guarding and no masses Auscultation: normal bowel sounds Other: Bilateral nontender, nonreducible hernia present General: Yes no CVA tenderness Male General Exam: Yes normal external exam Back/Spine/Pelvis Back: no CVA tenderness Skin General skin exam: no rashes or lesions noted Neuro General: patient oriented x3, gait normal, tone normal, moves all extremities, Normal light touch and pain sensation, no focal motor deficits and CN's II-XI intact bilaterally Extrem General: Yes full ROM, Yes no joint enlargement, Yes no clubbing, cyanosis or edema and Yes no calf tenderness Psych Appearance: grossly normal Mental Status: mental status grossly normal Affect: normal affect Attitude: cooperative Results Reviewed Results Reviewed: Name: Claudia Stock Age/Sex: 64/M : 1960 Unit#: [id number] Attend Dr: Nirali Salazar MD Re09/23/24 Status: REG REF Location: [facility] Disch: SPEC : [id number] MARIBETH: 09/23/24 STATUS: COMP REQ : [id number] RECD: 09/23/[address]: Nirali Salazar MD COMP: 09/23/24 ENTERED: 09/23/24 [facility]: ORDERED: CBC Auto Diff Test Result Flag Reference WBC 6.5 4.8-10.8 X10*3/uL RBC 5.38 4.60-5.80 X10*6/uL HGB 14.5 14.0-18.0 g/dl HCT 45.4 42.0-52.0 % MCV 84.4 80.0-98.0 fL MCH 27.0 27.0-33.0 pg MCHC 31.9 31.0-36.0 g/dl RDW 13.2 11.0-16.0 % PLT 218 160-400 X10*3/uL MPV 11.0 9.4-12.4 fL Neut Pct Auto 52.8 45-73 % ImGran Pct Auto 0.3 0.0-0.4 % Lymp Pct Auto 37.3 20-40 % Fergus Pct Auto 8.4 2-11 % Eos Pct Auto 0.6 0-4 % Baso Pct Auto 0.6 0-2 % NRBC Pct Auto 0.0 0.0-0.2 /100WBC ANC Neut Abs # 3.5 2.0-8.3 x10*3/uL ImGran Abs Auto 0.02 0.00-0.03 X10*3/uL Lymph Abs Auto 2.4 1.2-4.9 X10*3/uL Fergus Abs Auto 0.6 0.1-1.2 X10*3/uL Eos Abs Auto 0.0 0.0-0.4 X10*3/uL Baso Abs Auto 0.0 0.0-0.2 X10*3/uL NRBC Abs Auto 0.000 0.0-0.012 X10*3/uL Name: Claudia Stock Age/Sex: 64/M : 1960 Unit#: [id number] Attend Dr: Nirali Salazar MD Re09/23/24 Status: REG REF Location: [facility] Disch: SPEC : [id number] MARIBETH: 09/23/24 STATUS: COMP REQ : [id number] RECD: 09/23/[address]: Nirali Salazar MD COMP: 09/23/24 ENTERED: 09/23/[address]: ORDERED: Met Prof Fast, AST, ALT, Lipid Panel Test Result Flag Reference Sodium 141 135-145 mmol/L Potassium 4.5 3.3-5.1 mmol/L CL 108 96-108 mmol/L CO2 27 22-29 mmol/L Gap 11 L 12-20 BUN 25 H 9-16 mg/dL Creat 1.00 0.5-1.4 mg/dL eGFR > 60 Chronic Kidney Disease: Estimated GFR < 60 mL/min/1.73m2 Severe Kidney Disease: Estimated GFR < 15 mL/min/1.73m2 FBS 115 H 60-99 mg/dL A fasting glucose from 100-125 mg/dl is considered impaired (pre-diabetes). CA 9.4 8.4-10.2 mg/dL AST (GOT) 27 5-37 U/L ALT (GPT) 26 0-40 U/L Triglyceride 107 <150 mg/dL Desirable Triglyceride: less than 150 mg/dL Borderline High Triglyceride 150-199 mg/dL High Triglyceride: 200-499 mg/dL Very High Triglyceride: greater than or equal to 5OO mg/dL Cholesterol 185 <200 mg/dL Desirable Cholesterol: less than 200 mg/dL Borderline High Cholesterol: 200-239 mg/dL High Cholesterol: greater than 239 mg/dL LDL Calculated 117 H <100 mg/dL Desirable LDL: less than 100 mg/dL Near Optimal/Above Optimal LDL: 110-129 mg/dL Borderline High LDL: 130-159 mg/dL High LDL: 160-189 mg/dL Very High LDL: greater than or equal to 190 mg/dL HDL 47 >40 mg/dL Desirable HDL: greater than 40 mg/dL Note: This HDL assay may give artificially low results in patients with liver disease. Coding Level of Care Code Est Pt Prev Care >65y(92113) Diagnoses Annual visit for general adult medical examination with abnormal findings Z00.01 Vaccine refused by patient Z28.20 Inguinal hernia, bilateral K40.20 Mixed conductive and sensorineural hearing loss, bilateral H90.6 Cholelithiasis K80.20 GERD without esophagitis K21.9 Osteoarthritis involving multiple joints on both sides of body M15.9 Depression with anxiety F41.8 Dyslipidemia E78.5 Advanced directives, counseling/discussion Z71.89 Additional Codes PHQ-9 - 63700 - PHQ-9 Billing: Yes ([id number]) KENDRICK-7 Assessment Billing - KENDRICK-7 Assessment Tool: KENDRICK-7 Assessment 21571 ([id number]) Vital Signs *Quality* - Advance Care Planning discussion: Completed/Scanned ([id number]) Vital Signs *Quality* - Time spent: 16-45 minutes ([id number]) Assessment & Plan Assessment & Plan (1) Annual visit for general adult medical examination with abnormal findings: Code(s): Z00.01 - Encounter for general adult medical examination with abnormal findings Plan: Recent fasting lab results reviewed with patient. Recommended dental visit every 6 months and regular eye exams, at least every 2 years. Take adequate calcium in diet and vitamin-D 3 at 2000 IU per cap once a day, in addition to weight-bearing exercises to help maintain good muscle tone and weight control. Instructed to do self-testicular exam to check for any mass. Will schedule surgical repair bilateral hernia once cholecystectomy done. Patient declines g etting any vaccines . advised to follow-up with Dr. Deng, overdue for his colonoscopy screening. (2) Vaccine refused by patient: Code(s): Z28.20 - Immunization not carried out because of patient decision for unspecified reason Category: Medical Plan: Patient does not want to get any vaccines (3) Inguinal hernia, bilateral: Code(s): K40.20 - Bilateral inguinal hernia, without obstruction or gangrene, not specified as recurrent Category: Medical Plan: Patient states he will get it repaired once he has his cholecystectomy done (4) Mixed conductive and sensorineural hearing loss, bilateral: Comment: Followed by ENT, Dr. Carlos Garza Code(s): H90.6 - Mixed conductive and sensorineural hearing loss, bilateral Category: Medical Plan: Followed by ENT, wearing right hearing aid, appointment for follow-up with them scheduled, to evaluate pain in ear when using it (5) Cholelithiasis: Code(s): K80.20 - Calculus of gallbladder without cholecystitis without obstruction Category: Medical Plan: Scheduled for laparoscopic cholecystectomy at [facility] (6) GERD without esophagitis: Comment: Followed by Dr. Javan Deng at [facility] Code(s): K21.9 - Gastro-esophageal reflux disease without esophagitis Category: Medical Plan: Currently on omeprazole, currently followed by Dr. Deng at [facility] (7) Osteoarthritis involving multiple joints on both sides of body: Code(s): M15.9 - Polyosteoarthritis, unspecified Category: Medical Plan: Followed by Dr. Augustin, his control panel tester (8) Depression with anxiety: Comment: goes to [facility] Code(s): F41.8 - Other specified anxiety disorders Category: Medical Plan: Currently stable controlled followed at [facility] by psychiatrist and therapist (9) Dyslipidemia: Code(s): E78.5 - Hyperlipidemia, unspecified Category: Medical Plan: Reviewed recent fasting lipid profile with patient with levels within normal limits . Continue atorvastatin 20 mg daily , in addition to adherence to low-cholesterol diet and regular exercise, at least 30 minutes 3 to 4 times a week. Advised patient to make healthy food choices, eat more fruits, vegetables, whole grains, wild caught fish and low-fat dairy. Limit amount of meat and fried or fatty food products, as well as processed foods and fast foods. Follow-up scheduled with repeat fasting lipid panel in 6 months. (10) Advanced directives, counseling/discussion: Code(s): Z71.89 - Other specified counseling Plan: Initiated the conversation about Advanced Directives. Advanced Directives help patients prepare for current and future decisions about their medical treatment and place of care. Discussed with patient that it is a process where a patients current condition and prognosis are reviewed, their wishes for information regarding their illness are elicited, and likely medical dilemmas are presented and options discussed. MOLST form and healthcare proxy form completed today. These forms can be amended as needed, reviewed yearly and make changes as needed Orders: Orders Hemoglobin A1c 03/04/25 E78.5 - Hyperlipidemia, unspecified, R73.01 - Impaired fasting glucose Lipid Panel 03/04/25 E78.5 - Hyperlipidemia, unspecified, R73.01 - Impaired fasting glucose Alanine Aminotransferase 03/04/25 E78.5 - Hyperlipidemia, unspecified, R73.01 - Impaired fasting glucose Vitamin D 25-OH Total 09/23/24 E53.8 - Deficiency of other specified B group vitamins, E55.9 - Vitamin D deficiency, unspecified, R25.2 - Cramp and spasm Vitamin B12 and Folate 09/23/24 E53.8 - Deficiency of other specified B group vitamins, E55.9 - Vitamin D deficiency, unspecified, R25.2 - Cramp and spasm Magnesium 09/23/24 E53.8 - Deficiency of other specified B group vitamins, E55.9 - Vitamin D deficiency, unspecified, R25.2 - Cramp and spasm Glucose Fasting 03/04/25 E78.5 - Hyperlipidemia, unspecified, R73.01 - Impaired fasting glucose Aspartate Amino Transferase 03/04/25 E78.5 - Hyperlipidemia, unspecified, R73.01 - Impaired fasting glucose
--- OUTSIDE RECORDS SUMMARY | 2024-09-23 12:56 | XMS_ITS | Clinical Summary ---
Author Organization [facility] Address [address] [place] [address] Phone Care Team Providers Care Garment Sorter Name Role Phone Suzy Jewell MD Primary Care Provider [phone] Social History Tobacco Use Types Packs/Day Years Used Date Smoking Tobacco: Never Assessed Sex and Gender Information Value Date Recorded Sex Assigned at Not on file Legal Sex Male 9:35 AM EST Gender Identity Not on file Sexual Orientation Not on file Plan of Treatment Upcoming Encounters Date Type Department Care Team ([facility] Contact Info) Description 10/14/2024 1:30 PM EDT Evaluation [address] [address] Lona Avery, GERARDO Health Maintenance Due Date Last Done Comments [...] Insurance MEDICAID - [place] MEDICARE Care Teams Garment Sorter Relationship Specialty Start Date End Date Suzy Jewell MD [address] [place] [phone] PCP - General Internal Medicine 09/08/24
== END 2024-09-23 14:13 | disposition home or self-care (01) ==
PROVIDERS: PCP Internal Medicine; Visit Provider Internal Medicine
DX: Z00.00 Encounter for general adult medical examination without abnormal findings (principal); K40.20 Bilateral inguinal hernia, without obstruction or gangrene, not specified as recurrent; Z28.20 Immunization not carried out because of patient decision for unspecified reason; H90.6 Mixed conductive and sensorineural hearing loss, bilateral; K80.20 Calculus of gallbladder without cholecystitis without obstruction; K21.9 Gastro-esophageal reflux disease without esophagitis; M15.9 Polyosteoarthritis, unspecified; F41.8 Other specified anxiety disorders; E78.5 Hyperlipidemia, unspecified; Z71.89 Other specified counseling

== ENCOUNTER 2025-04-13 08:27 | Outpatient (REF) | payer MEDICARE, MEDICAID, SELFPAY ==
[2025-04-13 11:05] LABS: Hemoglobin A1C 172.8880 umol/L; Total Hemoglobin (HGBA1C) 3867.1429 umol/L
[2025-04-13 11:36] LABS: Alanine Aminotransferase 25 U/L (0-40); Aspartate Amino Transferase 27 U/L (5-37); Cholesterol 194 mg/dL (<200); HDL Cholesterol 51 mg/dL (>40); Triglycerides 110 mg/dL (<150)
== END 2025-04-13 08:28 | disposition home or self-care (01) ==
LOC: HO.HMGCLDS 08:27
PROVIDERS: PCP Internal Medicine; Visit Provider Internal Medicine
DX: R73.01 Impaired fasting glucose (principal); E78.5 Hyperlipidemia, unspecified
CPT/HCPCS: 36415; 80061; 82947; 83036; 84450; 84460

== ENCOUNTER 2025-04-14 11:38 | Outpatient (AMB) | payer MEDICARE, MEDICAID, SELFPAY ==
[2025-04-14 11:45] VITALS: BP 116/64; PULSE 62; RESP 16; TEMP 36.7; O2SAT 99; BMI 24.3
--- NOTE | 2025-04-14 11:45 | MHC.PC.OV ---
Vital Signs 04/14/25 11:45 Height 5 ft 5 in Weight 146 lb BMI 24.3 BP 116/64 Blood Pressure Location Rt brachial Position Sitting Respiration 16 Pulse 62 Pulse Source Pulse Oximeter Temp 98.1 F Temp Source Oral Pulse Oximetry (%) 99 Oxygen Delivery Method Room Air Intake Visit Reasons: 6m f/u Intake Note: Pt is here today for his 6mo. f/u Allergies No Known Allergies Allergy (Verified 04/14/25 12:19) Medication List - Last Reconciled 04/14/25 by Nirali Salazar MD atorvastatin 20 mg PO DAILY baclofen 10 mg PO DAILY bupropion HCl XL 150 mg PO QAM cholecalciferol (vitamin D3) 50 mcg PO DAILY diclofenac potassium 50 mg PO BID diclofenac sodium 1% topical fluticasone propionate 50 mcg/actuation 1 spray intranasal DAILY magnesium 200 mg PO DAILY meclizine 25 mg PO BID PRN omeprazole 20 mg PO DAILY prazosin 1 mg PO BEDTIME Tobacco use date assessed: 04/14/25 Fall risk assessment: No Falls in past year Last assessed Fall Risk: 04/14/25 Dental Screening Dental Screen Date: 04/14/25 Did you have a dental visit in the last 12 months?: No Did you have a dental problem in the last 6 months where you did not have access to dental care?: No Was dental information given to patient?: Patient has dentist HPI 6m f/u HPI Details 64-year-old male with here for follow-up on his dyslipidemia and depression/anxiety. Has been compliant with taking his atorvastatin 20 mg daily, latest fasting labs showed lipids are within normal limits. But fasting glucose in the prediabetic range. Has not really been compliant to healthy eating habits and as per son does not engage in any regular activity or exercise He was being seen for his depression/anxiety at [facility] in [place] but states that they have not been able to reach anybody the for follow-up. Would like referral to [facility] and counsel where his is being seen [facility] Medical History Impaired fasting glucose Vaccine refused by patient Inguinal hernia, bilateral Prostate cancer screening Tendinitis of left hip Mixed conductive and sensorineural hearing loss, bilateral Refused influenza vaccine Cholelithiasis Osteoarthritis involving multiple joints on both sides of body Nocturia more than twice per night Depression with anxiety Blurred vision, bilateral Dyslipidemia Surgical History H/O esophagogastroduodenoscopy History of colonoscopy Family History Father No problems noted. Mother HTN (hypertension) Maternal Grandfather No problems noted. Maternal Grandmother No problems noted. Paternal Grandfather No problems noted. Paternal Grandmother No problems noted. Social History Housing: Apartment Alcohol intake: never Patient Tobacco Use Status: Former Tobacco user Years Smoked: 5 years e-Cigarette/Vaping Use: Never Used Current occupational status: retired Cognitive needs: No Hearing needs: Yes Vision needs: Yes Questionnaire PHQ-9 Over the last 2 weeks, how often have you been bothered by any of the following problems? 1. Little interest or pleasure in doing things: not at all 2. Feeling down, depressed, or hopeless: several days 3. Trouble falling or staying asleep, or sleeping too much: more than half the days 4. Feeling tired or having little energy: more than half the days 5. Poor appetite or overeating: more than half the days 6. Feeling bad about yourself - or that you are a failure or have let yourself or your family down: not at all 7. Trouble concentrating on things, such as reading the newspaper or watching television: more than half the days 8. Moving or speaking so slowly that other people could have noticed. Or the opposite - being so fidgety or restless that you have been moving around a lot more than usual: not at all 9. Thoughts that you would be better off or of hurting yourself in some way: not at all Total score: 9 Depression Screening Interpretation: Positive (Currently being seen at [facility]) Depression Screening Follow-up: Existing condition, In treatment and Community Mental Health Worker F/U Depression Screening Done: Yes 02794 - PHQ-9 Billing: Yes Source: Developed by Drs. Eliud Webb, Candida Peoples, Zbigniew Arias and colleagues, with an educational daniel from [email or web address]. Thrive Questionnaire Date Thrive assessed: 09/23/24 I am a: Parent/Caregiver What is your living situation today?: I have a steady place to live Within the past 12 months, did the food you bought not last and you didn't have the money to get more?: Never true Within the past 12 months, did you worry whether your food would run out before you got money to buy more?: Never true Do you have trouble paying for medicines?: No Do you have trouble getting transportation to medical appointments?: No Do you have trouble paying your heating and electricity bill?: No Do you have trouble taking care of your child, family member or friend?: No Do you have trouble with day-to-day activities such as bathing, preparing meals, shopping, managing finances, etc.?: No Are you currently unemployed and looking for a job?: No Are you interested in more education?: No Please select the resources that you would like help with: None Currently or been in a relationship where the following occur: I choose not to answer THRIVE Score: 0 AUDIT C Alcohol Use Questionnaire (AUDIT-C) 1. How often do you have a drink containing alcohol?: Never Total Score: 0 KENDRICK-7 AMB Questionnaire KENDRICK-7 Date KENDRICK - 7 assessed: 09/23/24 Feeling nervous, anxious, or on edge: 0 = Not at all Not being able to stop or control worryin = Not at all Worrying too much about different things: 0 = Not at all Trouble relaxin = Not at all Being so restless that it is hard to sit still: 0 = Not at all Becoming easily annoyed or irritable: 0 = Not at all Feeling afraid as if something awful might happen: 0 = Not at all Total KENDRICK-7 score (0-4 normal; 5-9 mild; 10-14 moderate; 15-21 severe): 0 Source: Developed by Drs. Eliud Webb, Candida Peoples, Zbigniew Arias and colleagues, with an educational daniel from [email or web address]. Review of Systems Const Denies fever(s) and Denies weakness Eyes Reports no additional complaints ENT Reports no additional complaints Card Denies chest pain, Denies lightheadedness and Denies dyspnea Resp Denies cough and Denies dyspnea GI Reports abdominal pain (Intermittent epigastric and right upper quadrant pain), Denies melena, Denies hematochezia and Denies nausea Reports no additional complaints Musc Reports arthralgias, Denies joint swelling and Reports stiffness Skin/Breast Denies rash Neuro Denies seizure-like activity and Denies weakness Psych Reports as per HPI Endo Reports no additional complaints Charles/Lymph Reports no additional complaints Aller/Immun Reports no additional complaints Physical exam (Primary Care) Vital Signs: Last Vital Signs Temp 98.1 F 04/14/25 11:45 Pulse 62 04/14/25 11:45 Resp 16 04/14/25 11:45 BP 116/64 04/14/25 11:45 Pulse Ox 99 04/14/25 11:45 Oxygen Delivery Method Room Air 04/14/25 11:45 BMI result Body Mass Index 24.3 Tobacco/Smoking Status: Tobacco use Status Tobacco use date assessed 04/14/25 04/14/25 11:48 Patient Tobacco Use Status Former Tobacco user 04/14/25 11:48 e-Cigarette/Vaping Use Never Used 04/14/25 11:48 PHQ-9: PHQ-9 Score PHQ-9: Total score 12 04/14/25 12:21 Depression Screening Interpretation: Positive (Currently being seen at [facility]) Depression Screening Follow-up: Existing condition, In treatment and Community Mental Health Worker F/U Thrive Assessment: Date of Thrive Assessment Date Thrive assessed 09/23/24 04/14/25 11:48 Currently or been in a relationship where the following occur: I choose not to answer Const General: comfortable, no acute distress and alert Orientation/consciousness: patient oriented x3 HENMT Ears: hearing grossly impaired (wears hearing aid) on the right Eyes General: appearance normal, both eyes and all related structures Neck Neck: Yes full ROM, Yes no lymphadenopathy and Yes supple Thyroid: Thyroid normal (Nonpalpable) Resp Auscultation: clear to auscultation bilaterally Cardio Rate: regular rate Rhythm: regular rhythm Heart sounds: S1 normal heart sound present and S2 normal heart sound present GI Palpation (GI): Soft to palpation, Tenderness to palpation present (GI) in the RUQ, no guarding and no masses Auscultation: normal bowel sounds Other: Bilateral nontender, nonreducible hernia present General: Yes no CVA tenderness Male General Exam: Yes normal external exam Back/Spine/Pelvis Back: no CVA tenderness Skin General skin exam: no rashes or lesions noted Neuro General: patient oriented x3, gait normal, tone normal, moves all extremities, Normal light touch and pain sensation, no focal motor deficits and CN's II-XI intact bilaterally Extrem General: Yes full ROM, Yes no joint enlargement, Yes no clubbing, cyanosis or edema and Yes no calf tenderness Psych Appearance: grossly normal Mental Status: mental status grossly normal Affect: normal affect Attitude: cooperative Results Reviewed Results Reviewed: Laboratory Tests 04/13/25 08:39 Estimat Average Glucose 131 Hemoglobin A1c % 6.2 H Name: Claudia Stock Age/Sex: 64/M : 1960 Unit#: [id number] Attend Dr: Nirali Salazar MD Re04/13/25 Status: DEP REF Location: [facility] Disch: SPEC : [id number] MARIBETH: 04/13/25 STATUS: COMP REQ : [id number] RECD: 04/13/[address]: Nirali Salazar MD COMP: 04/13/25 ENTERED: 04/13/[address]: ORDERED: Glu Fasting, AST, ALT, Lipid Panel Test Result Flag Reference FBS 117 H 60-99 mg/dL A fasting glucose from 100-125 mg/dl is considered impaired (pre-diabetes). AST (GOT) 27 5-37 U/L ALT (GPT) 25 0-40 U/L Triglyceride 110 <150 mg/dL Desirable Triglyceride: less than 150 mg/dL Borderline High Triglyceride 150-199 mg/dL High Triglyceride: 200-499 mg/dL Very High Triglyceride: greater than or equal to 5OO mg/dL Cholesterol 194 <200 mg/dL Desirable Cholesterol: less than 200 mg/dL Borderline High Cholesterol: 200-239 mg/dL High Cholesterol: greater than 239 mg/dL LDL Calculated 121 H <100 mg/dL Desirable LDL: less than 100 mg/dL Near Optimal/Above Optimal LDL: 110-129 mg/dL Borderline High LDL: 130-159 mg/dL High LDL: 160-189 mg/dL Very High LDL: greater than or equal to 190 mg/dL HDL 51 >40 mg/dL Desirable HDL: greater than 40 mg/dL Note: This HDL assay may give artificially low results in patients with liver disease. Coding Level of Care Code Est Pt Level 4 (54178) Complex EM visit Add On G2211 Diagnoses Depression with anxiety F41.8 Dyslipidemia E78.5 Impaired fasting glucose R73.01 Intermittent lightheadedness R42 Additional Codes PHQ-9 - 06290 - PHQ-9 Billing: Yes ([id number]) Assessment & Plan Assessment & Plan (1) Depression with anxiety: Comment: goes to [facility] Code(s): F41.8 - Other specified anxiety disorders Category: Medical Plan: Referred to Sun, our community mental health worker, for assistance in getting referral different psychiatrist (2) Dyslipidemia: Code(s): E78.5 - Hyperlipidemia, unspecified Category: Medical Plan: Continue atorvastatin (3) Impaired fasting glucose: Code(s): R73.01 - Impaired fasting glucose Category: Medical Plan: Your previous fasting blood sugars were elevated above 100 mg/dL. Impaired glucose metabolism increases the risk for developing diabetes mellitus type 2, as well as heart attack and stroke later on. Lifestyle changes that promotes weight loss, healthy eating habits, and regular exercise are important, and can prevent the progression to diabetes (4) Intermittent lightheadedness: Code(s): R42 - Dizziness and giddiness Plan: Prescription sent for meclizine to take only as needed, he has no anemia does have impaired hearing, wears hearing aid which could also affect equilibrium. Advised to notify us if meclizine is not helping or if lightheadedness persists and will refer him for vestibular rehab therapy Medications: Refilled meclizine 25 mg PO BID PRN 60 tabs 0RF dizziness
== END 2025-04-14 13:01 | disposition home or self-care (01) ==
LOC: HO.HMCC 11:39
PROVIDERS: PCP Internal Medicine; Visit Provider Internal Medicine
DX: F41.8 Other specified anxiety disorders (principal); E78.5 Hyperlipidemia, unspecified; R73.01 Impaired fasting glucose; R42 Dizziness and giddiness

== ENCOUNTER → 2025-04-14 11:38 | Outpatient (BNVA) | payer MEDICARE, MEDICAID, SELFPAY | PROVIDERS: PCP Internal Medicine; Visit Provider Internal Medicine | DX: R42 Dizziness and giddiness (principal); F41.8 Other specified anxiety disorders; E78.5 Hyperlipidemia, unspecified; R73.01 Impaired fasting glucose; Z79.899 Other long term (current) drug therapy | CPT/HCPCS: 96127; 99212 ==